=== PATIENT | female | born 1995 | race Caucasian/White ===

== ENCOUNTER 2023-10-05 09:20 | Outpatient (AMB) | payer OTHER, SELFPAY ==
[2023-10-05 09:49] VITALS: BMI 55.9
--- NOTE | 2023-10-05 09:49 | A.OFFVIS_ITS ---
VS Expanded 10/05/23 09:49 10/16/23 11:00 Height 5 ft 6 in 5 ft 6 in Weight 346 lb 2.012 oz 346 lb BMI 55.9 55.8 Intake Visit Reasons: Obesity Nutrition Presentation Details: Pt presents for MNT for obesity class 3. The patient was referred by Dr. Genie Hayes, from [facility]. Patient reports having no meal routine Physical activity daily life activities Food frequency Fruit 0-1 per day Vegetables 2 servings per day Dairy 3+ servings per day (cheese) Starches: Greater than 20 servings per day Protein foods poultry, these, cheese, eggs, seldom fish Snacks breads, crackers, fruit, pastries Multivitamins: None BS Monitoring Most Recent Diabetes Results: No Data to Display MTJ-Oumyvyq-Sb.Jeor Equation Height: 5 ft 6 in Weight: 346 lb Resting Metabolic Rate: 2316.85 Calculated Activity Level: Sedentary Calories Needed to Maintain Weight: 2780.22 Diagnosis Nutrition problem #1: excessive energy intake As related to (etiology) #1: diagnosis As evidenced by (sign/symptom) #1: knowledge deficit of diet Monitoring/Goals Nutrition problem monitoring: level of knowledge/skill, total CHO intake, weight and oral fluids Outcome progress: verbalized understanding Learning/Education Readiness to learn: good Stages of change: preparation Educational materials provided: Yes (Meal planning) Assessment & Plan Assessment & Plan (1) Obesity, Class III, BMI 40-49.9 (morbid obesity): Code(s): E66.01 - Morbid (severe) obesity due to excess calories Category: Medical Plan: Wt: 157 Kg ( 09/2023 ) Est kcal needs as per MSJ: 2800 (40% carb, 30% protein/fat) Est fluid needs as per 25-30 ml/d: 4700 Est prot per day as per 1 g/kg bw: 157 Recommend fiber intake : 8-10 g per day and gradually increase to 25-28 g per day for women and 35-38 g for men or as tolerated Recommend sodium intake per day : less than 2000 mg Educated patient on: ( R = reviewed V = verbalizes understanding N/R = needs review N/A = not applicable * Food sources of carbohydrate, adequate serving sizes and its role in various health conditions: R * Differences between complex carbohydrates a simple carbohydrates, role of fiber in diet: R * Lean protein sources of foods: R V NR * Differences between types of fats and role in diet (mono on saturated fat fatty acids, saturated fatty acids, trans fats): R V N/R * Food sources of sodium in salt and healthy modifications for heart health in kidney health: R V R/V * Vitamins and minerals: R V N/R * Healthy plate method concept: R V N/R * Physical activity: Benefits a precaution: R V N/R Patient Instructions: Practice mindful eating - chewing foods slowly, savoring food Mix sugary beverages with seltzer water (working on reducing on sugars) keep a food log and bring to your next appointment next meeting discuss readiness for meal schedule Coding Level of Care Code Nutr Indiv Intake (52472) Diagnoses Obesity, Class III, BMI 40-49.9 (morbid obesity) E66.01 Time Spent (min) 30
[2023-10-16 11:00] VITALS: BMI 55.8
== END 2023-10-05 10:12 | disposition home or self-care (01) ==
PROVIDERS: Visit Provider Dietitian, Registered
DX: E66.01 Morbid (severe) obesity due to excess calories (principal)

== ENCOUNTER → 2023-10-05 09:20 | Outpatient (BNVA) | payer SELFPAY | PROVIDERS: Visit Provider Dietitian, Registered | DX: E66.01 Morbid (severe) obesity due to excess calories (principal); Z68.43 Body mass index [BMI] 50.0-59.9, adult; Z71.3 Dietary counseling and surveillance | CPT/HCPCS: 97802 ==